=== PATIENT | female | born 1960 | race Caucasian/White ===

== ENCOUNTER 2018-12-06 16:18 | Observation (INO) | payer OTHER ==
[2018-12-06 17:42] LABS: ADD MAN DIFF? NO
[2018-12-06] MEDS: SOD CHLORIDE 0.9% 1,000 ML IV (17:46)
[2018-12-06 17:49] LABS: BASOPHIL # 0.1 10^3/ul (0.0-0.1); BASOPHILS % 0.8 % (0.0-2.0); EOSINOPHILS # 0.2 10^3/ul (0.0-0.5); EOSINOPHILS % 2.9 % (0.0-7.0); HEMATOCRIT 27.3 % (37.0-47.0); HEMOGLOBIN 9.1 g/dl (12.0-16.0); LYMPHOCYTES % 16.1 % (15.0-51.0); MEAN CORPUSCULAR HEMOGLOBIN 37.1 pg (29.0-33.0); MEAN CORPUSCULAR HGB CONC 33.3 g/dl (32.0-37.0); MEAN CORPUSCULAR VOLUME 111.4 fl (82.0-101.0); MEAN PLATELET VOLUME 11.3 fl (7.4-10.4); MONOCYTE # 0.7 10^3/ul (0.3-0.9); MONOCYTES % 11.1 % (0.0-11.0); NEUTROPHIL # 4.2 10^3/ul (1.6-7.5); NEUTROPHILS % 68.6 % (39.0-77.0); PLATELET COUNT 78 10^3/UL (140-415); RED BLOOD COUNT 2.45 10^6/ul (4.20-5.40); RED CELL DISTRIBUTION WIDTH 15.2 % (11.5-14.5)
[2018-12-06 17:49] LABS: WHITE BLOOD COUNT 6.1 10^3/ul (4.8-10.8)
[2018-12-06 18:04] LABS: ALANINE AMINOTRANSFERASE 24 IU/L (13-69); ALBUMIN 2.6 g/dl (3.3-4.9); ALBUMIN/GLOBULIN RATIO 0.65; ALKALINE PHOSPHATASE 134 IU/L (42-121); ANION GAP 7 (5-13); ASPARTATE AMINO TRANSFERASE 66 IU/L (15-46); BILIRUBIN,INDIRECT 3.1 mg/dl (0-1.1); BILIRUBIN,TOTAL 3.1 mg/dl (0.2-1.3); BLOOD UREA NITROGEN 11 mg/dl (7-20); CALCIUM 8.8 mg/dl (8.4-10.2); CARBON DIOXIDE 25 mmol/L (21-31); CHLORIDE 108 mmol/L (97-110); CREATININE 0.64 mg/dl (0.44-1.00); Estimated GFR > 60 mL/min (>60); GLUCOSE 103 mg/dl (70-220); LIPASE 252 U/L (23-300); POTASSIUM 3.9 mmol/L (3.5-5.1); SODIUM 140 mmol/L (135-144); TOTAL PROTEIN 6.6 g/dl (6.1-8.1)
[2018-12-06 18:05] LABS: AMMONIA 28 umol/l (9-30)
[2018-12-06 18:06] LABS: INR 1.91; PT RATIO 1.7
[2018-12-06 18:07] LABS: PARTIAL THROMBOPLASTIN TIME 44.2 Sec (23.0-35.0)
[2018-12-06 18:15] LABS: TROPONIN-I < 0.012 ng/ml (0.000-0.120)
[2018-12-06 18:41] LABS: ADD UMIC YES; UR ASCORBIC ACID 40 mg/dL (NEGATIVE); UR BACTERIA MODERATE /HPF (NONE SEEN); UR BILIRUBIN (Dip) NEGATIVE (NEGATIVE); UR BLOOD (Dip) NEGATIVE (NEGATIVE); UR CLARITY CLOUDY (CLEAR); UR COLOR AMBER (YELLOW); UR GLUCOSE (Dip) NEGATIVE (NEGATIVE); UR KETONES (Dip) NEGATIVE (NEGATIVE); UR LEUKOCYTE ESTERASE (Dip) 3+ Leu/ul (NEGATIVE); UR MUCUS FEW /HPF (NONE SEEN); UR NITRITE (Dip) POSITIVE (NEGATIVE); UR RBC 8 /HPF (0-5); UR SPECIFIC GRAVITY (Dip) 1.021 (1.003-1.030); UR SQUAMOUS EPITHELIAL CELL FEW /HPF (FEW); UR TOTAL PROTEIN (Dip) NEGATIVE (NEGATIVE); UR UROBILINOGEN (Dip) 1+ mg/dL (NEGATIVE); UR WBC > 182 /HPF (0-5)
[2018-12-06] MEDS: CEFTRIAXONE 1 GM/50 ML (PMX) 50 ML IVPB (19:09)
[2018-12-06] MEDS: AZITHROMYCIN 500MG/NS (PMX) 250 ML IVPB (20:38)
[2018-12-06] MEDS: MAGNESIUM SULFATE 2 GM/50 ML 50 ML IVPB (20:47)
[2018-12-06] MEDS ORDERED: MAGNESIUM HYDROXIDE 30ML CUP PO (22:00)
[2018-12-06] MEDS ORDERED: LORAZEPAM 0.5 MG TAB PO (22:00)
[2018-12-06] MEDS ORDERED: DIPHENHYDRAMINE 25 MG CAP PO (22:00)
[2018-12-06] MEDS ORDERED: NACL 0.9% 3 ML SYG IV (22:00)
[2018-12-06] MEDS: FAMOTIDINE 20 MG TAB PO (22:00)
[2018-12-06] MEDS ORDERED: ACETAMINOPHEN 325 MG TAB PO (22:00)
[2018-12-06] MEDS ORDERED: DOCUSATE SODIUM 100 MG CAP PO (22:00)
[2018-12-06] MEDS: MAGNESIUM OXIDE 400 MG TAB PO (22:00)
[2018-12-07 06:31] LABS: ADD MAN DIFF? NO
[2018-12-07 06:53] LABS: ABNORMAL IP MESSAGE 1; BASOPHIL # 0.1 10^3/ul (0.0-0.1); EOSINOPHILS # 0.2 10^3/ul (0.0-0.5); EOSINOPHILS % 3.8 % (0.0-7.0); HEMOGLOBIN 8.1 g/dl (12.0-16.0); LYMPHOCYTES % 18.4 % (15.0-51.0); MEAN CORPUSCULAR HEMOGLOBIN 37.3 pg (29.0-33.0); MEAN CORPUSCULAR HGB CONC 33.8 g/dl (32.0-37.0); MEAN CORPUSCULAR VOLUME 110.6 fl (82.0-101.0); MONOCYTE # 0.7 10^3/ul (0.3-0.9); MONOCYTES % 12.5 % (0.0-11.0); NEUTROPHIL # 3.4 10^3/ul (1.6-7.5); NEUTROPHILS % 63.9 % (39.0-77.0); PLATELET COUNT 61 10^3/UL (140-415); RED BLOOD COUNT 2.17 10^6/ul (4.20-5.40); RED CELL DISTRIBUTION WIDTH 14.8 % (11.5-14.5)
[2018-12-07 06:53] LABS: WHITE BLOOD COUNT 5.3 10^3/ul (4.8-10.8)
[2018-12-07 07:01] LABS: POSITIVE DIFF @See below
[2018-12-07 07:23] LABS: ANION GAP 7 (5-13); BLOOD UREA NITROGEN 9 mg/dl (7-20); CALCIUM 8.1 mg/dl (8.4-10.2); CARBON DIOXIDE 25 mmol/L (21-31); CHLORIDE 109 mmol/L (97-110); Estimated GFR > 60 mL/min (>60); GLUCOSE 84 mg/dl (70-220); SODIUM 141 mmol/L (135-144)
[2018-12-07] MEDS: FOLIC ACID 1 MG TAB PO (08:26)
[2018-12-07] MEDS: SPIRONOLACTONE 50 MG TAB PO (08:26)
[2018-12-07] MEDS: MULTIVITAMINS THERAPEUTIC TAB PO (08:26)
[2018-12-07] MEDS: FERROUS SULFATE (EC) 325 MG TAB PO ×2 (08:26→13:02)
[2018-12-07] MEDS: MAGNESIUM OXIDE 400 MG TAB PO (08:26)
[2018-12-07] MEDS: FAMOTIDINE 20 MG TAB PO (08:26)
[2018-12-07] MEDS: ASCORBIC ACID 500 MG TAB PO (08:26)
[2018-12-07] MEDS: ENOXAPARIN 40 MG/0.4 ML SYG SC (08:31)
[2018-12-07] MEDS: SODIUM CHLORIDE 1 GM TAB PO ×2 (09:00→13:01)
[2018-12-07 09:27] LABS: HEMOGLOBIN 8.7 g/dl (12.0-16.0)
[2018-12-07] MEDS: PHYTONADIONE 10 MG/ML INJ IM (11:12)
[2018-12-07] MEDS ORDERED: CEFTRIAXONE 1 GM/50 ML (PMX) 50 ML IVPB (18:30)
== END 2018-12-07 18:17 ==
LOC: TEL 12-07 08:22 → E/R 16:18 → TEL 19:01
DX: N39.0 Urinary tract infection, site not specified (principal); R41.82 Altered mental status, unspecified; K70.40 Alcoholic hepatic failure without coma; D69.6 Thrombocytopenia, unspecified; D68.4 Acquired coagulation factor deficiency; J18.1 Lobar pneumonia, unspecified organism; E86.0 Dehydration; K70.30 Alcoholic cirrhosis of liver without ascites
CPT/HCPCS: 36415; 71045; 76705; 80048; 80053; 81001; 82140; 83690; 84443; 84484; 85018; 85025; 85610; 85730; 86850; 86900; 86901; 87040; 87086; 93005; 99217; 99285-25; G0378